=== PATIENT | female | born 1945 | race Caucasian/White ===

== ENCOUNTER 2016-10-11 01:47 | Inpatient (IN) | payer OTHER ==
[~2016-10-11] VITALS: Ht 154.9 cm; Wt 72.7 kg
[~2016-10-11 01:47] MED LIST: ACET650S14 PR; AMLO-511 PO; AMOX-429 PO; ASPI81TA42 PO; BRIM15OS OU; BRINOS OS; BUSP10TA23 PO; CLOP75 PO; FAMO-136 PO; FURO20 PO; INS7030 SQ; INSU100V SQ; IPRA6S NASAL; ISOS60TA4 PO; LOSA50TA37 PO; METO25 PO; MONT10TA21 PO; OXYC-38 PO; SLOWK8 PO; XALA2.5OS OU; [UNRECOGNIZED DRUG - CODE] OU
[2016-10-11] MEDS ORDERED: OMEP20 PO (02:10)
[2016-10-11] MEDS ORDERED: ROSU20 PO (02:10)
[2016-10-11] MEDS ORDERED: RANO500T3 PO (02:10)
[2016-10-11 02:11] LABS: GLUCOSE,POINT OF CARE 429 MG/DL (70-110)
[2016-10-11 02:53] LABS: HEMATOCRIT 31.7 % (36-46); HEMOGLOBIN 10.7 g/dL (12.0-16.0); MEAN CORPUSCULAR HEMOGLOBIN 30.1 pg (26.0-34.0); MEAN CORPUSCULAR HGB CONC 33.8 G/dL (31.0-37.0); MEAN CORPUSCULAR VOLUME 89 fL (80-100); PLATELET COUNT (AUTO) 213 K/uL (150-450); RED BLOOD CELL COUNT(AUTO) 3.57 MIL/uL (4.00-5.20); RED CELL DISTRIBUTION WIDTH 14.6 % (11.5-14.5); WHITE BLOOD COUNT (AUTO) 14.7 K/uL (4.5-11.0)
[2016-10-11 03:09] LABS: ALBUMIN 2.5 g/dL (3.4-5.0); BILIRUBIN,TOTAL 0.5 mg/dL (0.1-1.0); CALCIUM, TOTAL 8.5 mg/dL (8.8-10.5); CREATININE 1.89 mg/dL (0.60-1.30); POTASSIUM 3.7 mmol/L (3.5-5.1); TOTAL PROTEIN, SERUM 6.6 g/dL (6.4-8.2)
[2016-10-11] MEDS ORDERED: KETOROLAC TROMETHAMINE 30 MG/ML VIAL IVP ONE (03:15)
[2016-10-11] MEDS ORDERED: SODIUM CHLORIDE 0.9% 1,000 ML IV ONE ×3 (03:15→05:15)
[2016-10-11] MEDS ORDERED: LOPERAMIDE HCL 2 MG CAPSULE PO ONE (03:15)
[2016-10-11] MEDS ORDERED: INSULIN REGULAR, HUMAN 100 UNITS/ML IVP ONE (03:15)
[2016-10-11 03:21] LABS: BAND NEUTROPHILS % (MANUAL) 23 % (1-5); LYMPHOCYTES % (MANUAL) 9 % (22-44); TOTAL CELLS COUNTED 100
[2016-10-11 04:40] LABS: APPEARANCE,URINE CLOUDY (CLEAR); GLUCOSE, URINE (UA) 500 mg/dL (NEGATIVE); KETONES,URINE NEGATIVE (NEGATIVE); LEUKOCYTE ESTERASE ,URINE TRACE (NEGATIVE); OCCULT BLOOD,URINE SMALL (NEGATIVE); PH,URINE 5.5 (5.0-8.0); PROTEIN,URINE SEE CONFIRM (NEGATIVE)
[2016-10-11 04:41] LABS: GLUCOSE COMMENT 1 Doctor Notified; GLUCOSE,POINT OF CARE 325 MG/DL (70-110)
[2016-10-11] MEDS ORDERED: BARIUM SULFATE 0.1% SUSPENSION 450 ML BOTTLE PO ONE (04:45)
[2016-10-11 04:51] LABS: SQUAMOUS EPITHELIAL CELL,UR Few /LPF (None Seen); SULFOSALICYLIC ACID,URINE 1+ (Negative)
[2016-10-11 05:04] LABS: LACTIC ACID 2.4 mmol/L (0.4-2.0)
[2016-10-11] MEDS ORDERED: ACETAMINOPHEN 325 MG TABLET PO PRN (05:15)
[2016-10-11] MEDS ORDERED: ONDANSETRON HCL 4 MG/2 ML VIAL IVP PRN (05:15)
[2016-10-11] MEDS ORDERED: IODIXANOL 320 MG/ML 100 ML VIAL ONE (05:21)
[2016-10-11 06:23] LABS: REFLEX LACTIC ACID? YES YES
[2016-10-11] MEDS ORDERED: PANTOPRAZOLE SODIUM 40 MG/VIAL IVP ONE (06:45)
[2016-10-11 08:09] VITALS: BP 130/74
[2016-10-11] MEDS ORDERED: 0.9% SODIUM CHLORIDE 10 ML SYRINGE IVP PRN (09:45)
[2016-10-11] MEDS ORDERED: OMEPRAZOLE 20 MG CAPSULE PO SCH (09:45)
[2016-10-11 10:59] LABS: CALCIUM, TOTAL 7.5 mg/dL (8.8-10.5); CREATININE 1.36 mg/dL (0.60-1.30); POTASSIUM 3.5 mmol/L (3.5-5.1)
[2016-10-11] MEDS: FAMOTIDINE 20 MG TABLET PO SCH ×2 (11:43→20:24)
[2016-10-11] MEDS: ISOSORBIDE MONONITRATE 60 MG ER TABLET PO SCH (11:44)
[2016-10-11] MEDS: BusPIRone HCL 10 MG TABLET PO SCH ×2 (11:44→20:24)
[2016-10-11] MEDS: LOSARTAN POTASSIUM 50 MG TABLET PO SCH (11:44)
[2016-10-11] MEDS: AmLODIPine BESYLATE 5 MG TABLET PO SCH (11:44)
[2016-10-11] MEDS: CLOPIDOGREL BISULFATE 75 MG TABLET PO SCH (11:44)
[2016-10-11] MEDS: RANOLAZINE 500 MG SR TABLET PO SCH ×2 (11:45→20:24)
[2016-10-11] MEDS: IPRATROPIUM BROMIDE NASAL SCH ×2 (11:46→20:23)
[2016-10-11] MEDS: INSULIN HUMAN NPH-REGULAR 70/30 100 UNITS/ML SQ SCH ×2 (11:47→21:00)
[2016-10-11 11:54] VITALS: BP 134/56
[2016-10-11 11:56] LABS: GLUCOSE COMMENT 1 Received Meds; GLUCOSE,POINT OF CARE 295 MG/DL (70-110)
[2016-10-11] MEDS: METOPROLOL TARTRATE 25 MG TABLET PO SCH (11:59)
[2016-10-11] MEDS ORDERED: DEXTROSE 50%-WATER 25 GM/50 ML SYRINGE IVP PRN (12:00)
[2016-10-11] MEDS: GuaiFENesin/CODEINE [SUGAR FREE] 200-20MG/10 ML SYRUP UDCUP PO PRN (15:03)
[2016-10-11] MEDS: INSULIN ASPART 100 UNITS/ML SQ PRN ×2 (15:04→16:34)
[2016-10-11] MEDS: PILOCARPINE HCL 2% 15 ML OPHTHALMIC SOLUTION OU SCH ×3 (15:05→20:23)
[2016-10-11] MEDS: BRINZOLAMIDE 1% 10 ML OPHTHALMIC SUSPENSION OS SCH ×2 (15:05→20:23)
[2016-10-11 15:36] VITALS: BP 97/74
[2016-10-11] MEDS: BRIMONIDINE TARTRATE 0.1% 5 ML OPHTHALMIC SOLUTION OU SCH ×2 (15:52→21:00)
[2016-10-11] MEDS: MetroNIDAZOLE 500 MG TABLET PO SCH ×2 (16:30→20:25)
[2016-10-11 17:57] LABS: GLUCOSE,POINT OF CARE 99 MG/DL (70-110)
[2016-10-11 19:49] VITALS: BP 130/61
[2016-10-11] MEDS: ASPIRIN 81 MG EC TABLET PO SCH (20:24)
[2016-10-11] MEDS: MONTELUKAST SODIUM 10 MG TABLET PO SCH (20:24)
[2016-10-11] MEDS: LATANOPROST 0.005% 2.5 ML OPHTHALMIC SOLUTION OU SCH (20:24)
[2016-10-11] MEDS: ROSUVASTATIN CALCIUM 20 MG TABLET PO SCH (20:24)
[2016-10-11 21:56] LABS: GLUCOSE,POINT OF CARE 87 MG/DL (70-110)
[2016-10-12] VITALS (7 sets, daily range): BP systolic 106–140; BP diastolic 51–70
[2016-10-12 06:01] LABS: GLUCOSE,POINT OF CARE 111 MG/DL (70-110)
[2016-10-12 06:09] LABS: BASOPHILS % (AUTO) 0.2 % (0.0-2.0); EOSINOPHILS % (AUTO) 0.8 % (1.0-6.0); HEMATOCRIT 32.1 % (36-46); HEMOGLOBIN 10.6 g/dL (12.0-16.0); LYMPHOCYTES % (AUTO) 8.7 % (22.0-44.0); MEAN CORPUSCULAR HEMOGLOBIN 29.9 pg (26.0-34.0); MEAN CORPUSCULAR HGB CONC 33.1 G/dL (31.0-37.0); MEAN CORPUSCULAR VOLUME 90 fL (80-100); MONOCYTES # (AUTO) 0.6 K/uL (0.1-1.0); MONOCYTES % (AUTO) 4.8 % (2.0-9.0); NEUTROPHILS # (AUTO) 9.9 K/uL (1.8-7.7); PLATELET COUNT (AUTO) 193 K/uL (150-450); RED BLOOD CELL COUNT(AUTO) 3.55 MIL/uL (4.00-5.20); RED CELL DISTRIBUTION WIDTH 14.5 % (11.5-14.5); WHITE BLOOD COUNT (AUTO) 11.6 K/uL (4.5-11.0)
[2016-10-12 06:46] LABS: NEUTROPHILS % (AUTO) 85.5 % (40.0-70.0)
[2016-10-12] MEDS: MetroNIDAZOLE 500 MG TABLET PO SCH ×3 (08:26→20:48)
[2016-10-12] MEDS: METOPROLOL TARTRATE 25 MG TABLET PO SCH (08:26)
[2016-10-12] MEDS: ISOSORBIDE MONONITRATE 60 MG ER TABLET PO SCH (08:26)
[2016-10-12] MEDS: FAMOTIDINE 20 MG TABLET PO SCH ×2 (08:26→20:49)
[2016-10-12] MEDS: CLOPIDOGREL BISULFATE 75 MG TABLET PO SCH (08:27)
[2016-10-12] MEDS: LOSARTAN POTASSIUM 50 MG TABLET PO SCH (08:27)
[2016-10-12] MEDS: RANOLAZINE 500 MG SR TABLET PO SCH ×2 (08:29→20:48)
[2016-10-12] MEDS: BusPIRone HCL 10 MG TABLET PO SCH ×2 (08:29→20:49)
[2016-10-12] MEDS: AmLODIPine BESYLATE 5 MG TABLET PO SCH (08:29)
[2016-10-12] MEDS: BRINZOLAMIDE 1% 10 ML OPHTHALMIC SUSPENSION OS SCH ×3 (08:30→20:50)
[2016-10-12] MEDS: IPRATROPIUM BROMIDE NASAL SCH ×2 (08:30→21:00)
[2016-10-12] MEDS: PILOCARPINE HCL 2% 15 ML OPHTHALMIC SOLUTION OU SCH ×4 (08:31→20:50)
[2016-10-12] MEDS: GuaiFENesin/CODEINE [SUGAR FREE] 200-20MG/10 ML SYRUP UDCUP PO PRN (08:39)
[2016-10-12] MEDS: INSULIN HUMAN NPH-REGULAR 70/30 100 UNITS/ML SQ SCH ×2 (08:40→21:00)
[2016-10-12 08:56] LABS: GLUCOSE COMMENT 1 Received Meds; GLUCOSE,POINT OF CARE 156 MG/DL (70-110)
[2016-10-12] MEDS: BRIMONIDINE TARTRATE 0.1% 5 ML OPHTHALMIC SOLUTION OU SCH ×3 (09:00→20:50)
[2016-10-12 11:32] LABS: GLUCOSE,POINT OF CARE 175 MG/DL (70-110)
[2016-10-12] MEDS: INSULIN ASPART 100 UNITS/ML SQ PRN ×2 (12:04→20:48)
[2016-10-12 17:31] LABS: GLUCOSE COMMENT 1 Received Meds; GLUCOSE,POINT OF CARE 150 MG/DL (70-110)
[2016-10-12] MEDS: MONTELUKAST SODIUM 10 MG TABLET PO SCH (20:49)
[2016-10-12] MEDS: ROSUVASTATIN CALCIUM 20 MG TABLET PO SCH (20:50)
[2016-10-12] MEDS: ASPIRIN 81 MG EC TABLET PO SCH (20:50)
[2016-10-12] MEDS: LATANOPROST 0.005% 2.5 ML OPHTHALMIC SOLUTION OU SCH (20:51)
[2016-10-12 21:31] LABS: GLUCOSE COMMENT 1 Received Meds; GLUCOSE,POINT OF CARE 180 MG/DL (70-110)
[2016-10-13 03:45] VITALS: BP 114/53
[2016-10-13] MEDS: INSULIN ASPART 100 UNITS/ML SQ PRN ×3 (06:05→21:06)
[2016-10-13 06:21] LABS: GLUCOSE,POINT OF CARE 176 MG/DL (70-110)
[2016-10-13 07:59] VITALS: BP 137/64
[2016-10-13] MEDS: RANOLAZINE 500 MG SR TABLET PO SCH ×2 (09:02→21:05)
[2016-10-13] MEDS: AmLODIPine BESYLATE 5 MG TABLET PO SCH (09:03)
[2016-10-13] MEDS: FAMOTIDINE 20 MG TABLET PO SCH ×2 (09:04→21:05)
[2016-10-13] MEDS: ISOSORBIDE MONONITRATE 60 MG ER TABLET PO SCH (09:04)
[2016-10-13] MEDS: BusPIRone HCL 10 MG TABLET PO SCH ×2 (09:04→21:05)
[2016-10-13] MEDS: LOSARTAN POTASSIUM 50 MG TABLET PO SCH (09:05)
[2016-10-13] MEDS: CLOPIDOGREL BISULFATE 75 MG TABLET PO SCH (09:05)
[2016-10-13] MEDS: MetroNIDAZOLE 500 MG TABLET PO SCH ×3 (09:05→21:04)
[2016-10-13] MEDS: METOPROLOL TARTRATE 25 MG TABLET PO SCH (09:05)
[2016-10-13] MEDS: BRINZOLAMIDE 1% 10 ML OPHTHALMIC SUSPENSION OS SCH ×3 (09:06→21:05)
[2016-10-13] MEDS: PILOCARPINE HCL 2% 15 ML OPHTHALMIC SOLUTION OU SCH ×4 (09:07→21:06)
[2016-10-13] MEDS: IPRATROPIUM BROMIDE NASAL SCH ×2 (09:07→21:05)
[2016-10-13] MEDS: BRIMONIDINE TARTRATE 0.1% 5 ML OPHTHALMIC SOLUTION OU SCH ×3 (09:07→21:06)
[2016-10-13] MEDS: INSULIN HUMAN NPH-REGULAR 70/30 100 UNITS/ML SQ SCH ×2 (09:09→21:00)
[2016-10-13 12:24] VITALS: BP 118/60
[2016-10-13 12:31] LABS: GLUCOSE,POINT OF CARE 231 MG/DL (70-110)
[2016-10-13 15:51] VITALS: BP 120/66
[2016-10-13 19:36] VITALS: BP 128/51
[2016-10-13] MEDS: ASPIRIN 81 MG EC TABLET PO SCH (21:04)
[2016-10-13] MEDS: MONTELUKAST SODIUM 10 MG TABLET PO SCH (21:05)
[2016-10-13] MEDS: ROSUVASTATIN CALCIUM 20 MG TABLET PO SCH (21:05)
[2016-10-13] MEDS: LATANOPROST 0.005% 2.5 ML OPHTHALMIC SOLUTION OU SCH (21:05)
[2016-10-13] MEDS: GuaiFENesin/CODEINE [SUGAR FREE] 200-20MG/10 ML SYRUP UDCUP PO PRN (21:24)
[2016-10-13 22:26] LABS: GLUCOSE,POINT OF CARE 240 MG/DL (70-110)
[2016-10-13 22:26] LABS: GLUCOSE,POINT OF CARE 265 MG/DL (70-110)
[2016-10-13 23:02] VITALS: BP 120/56
[2016-10-14 04:23] VITALS: BP 137/58
[2016-10-14] MEDS: INSULIN ASPART 100 UNITS/ML SQ PRN ×2 (05:46→11:58)
[2016-10-14] MEDS: GuaiFENesin/CODEINE [SUGAR FREE] 200-20MG/10 ML SYRUP UDCUP PO PRN (05:50)
[2016-10-14 06:22] LABS: GLUCOSE,POINT OF CARE 189 MG/DL (70-110)
[2016-10-14 07:27] VITALS: BP 127/57
[2016-10-14 08:28] LABS: BASOPHILS % (AUTO) 0.1 % (0.0-2.0); HEMATOCRIT 31.1 % (36-46); HEMOGLOBIN 10.4 g/dL (12.0-16.0); LYMPHOCYTES # (AUTO) 1.1 K/uL (1.0-4.8); LYMPHOCYTES % (AUTO) 12.7 % (22.0-44.0); MEAN CORPUSCULAR HEMOGLOBIN 29.7 pg (26.0-34.0); MEAN CORPUSCULAR HGB CONC 33.4 G/dL (31.0-37.0); MEAN CORPUSCULAR VOLUME 89 fL (80-100); MONOCYTES # (AUTO) 0.7 K/uL (0.1-1.0); MONOCYTES % (AUTO) 8.4 % (2.0-9.0); NEUTROPHILS # (AUTO) 6.6 K/uL (1.8-7.7); NEUTROPHILS % (AUTO) 77.8 % (40.0-70.0); PLATELET COUNT (AUTO) 218 K/uL (150-450); RED CELL DISTRIBUTION WIDTH 15.3 % (11.5-14.5); WHITE BLOOD COUNT (AUTO) 8.4 K/uL (4.5-11.0)
[2016-10-14 08:36] LABS: CALCIUM, TOTAL 7.9 mg/dL (8.8-10.5); CREATININE 1.07 mg/dL (0.60-1.30); MAGNESIUM 1.9 mg/dL (1.80-2.40); POTASSIUM 3.2 mmol/L (3.5-5.1)
[2016-10-14] MEDS: INSULIN HUMAN NPH-REGULAR 70/30 100 UNITS/ML SQ SCH (09:00)
[2016-10-14] MEDS: BusPIRone HCL 10 MG TABLET PO SCH (09:10)
[2016-10-14] MEDS: MetroNIDAZOLE 500 MG TABLET PO SCH (09:10)
[2016-10-14] MEDS: LOSARTAN POTASSIUM 50 MG TABLET PO SCH (09:10)
[2016-10-14] MEDS: IPRATROPIUM BROMIDE NASAL SCH (09:10)
[2016-10-14] MEDS: RANOLAZINE 500 MG SR TABLET PO SCH (09:10)
[2016-10-14] MEDS: METOPROLOL TARTRATE 25 MG TABLET PO SCH (09:10)
[2016-10-14] MEDS: FAMOTIDINE 20 MG TABLET PO SCH (09:10)
[2016-10-14] MEDS: AmLODIPine BESYLATE 5 MG TABLET PO SCH (09:10)
[2016-10-14] MEDS: CLOPIDOGREL BISULFATE 75 MG TABLET PO SCH (09:10)
[2016-10-14] MEDS: ISOSORBIDE MONONITRATE 60 MG ER TABLET PO SCH (09:10)
[2016-10-14] MEDS: BRIMONIDINE TARTRATE 0.1% 5 ML OPHTHALMIC SOLUTION OU SCH (09:11)
[2016-10-14] MEDS: BRINZOLAMIDE 1% 10 ML OPHTHALMIC SUSPENSION OS SCH (09:11)
[2016-10-14] MEDS: PILOCARPINE HCL 2% 15 ML OPHTHALMIC SOLUTION OU SCH ×2 (09:11→13:34)
[2016-10-14 12:07] LABS: GLUCOSE COMMENT 1 Received Meds; GLUCOSE,POINT OF CARE 316 MG/DL (70-110)
[2016-10-14 12:23] VITALS: BP 134/56
[2016-10-14] MEDS ORDERED: POTASSIUM CHLORIDE 20 MEQ ER TABLET PO ONE (15:15)
[2016-10-14 15:22] VITALS: BP 135/64
== END 2016-10-14 16:10 | disposition home or self-care (01) | DRG 371 ==
LOC: EMS 01:50 → 6N 06:43
PROVIDERS: ADMIT Family Medicine; ATTEND Family Medicine
DX: A04.7 Enterocolitis due to Clostridium difficile (principal); N17.0 Acute kidney failure with tubular necrosis; E87.2 Acidosis; E44.0 Moderate protein-calorie malnutrition; K21.9 Gastro-esophageal reflux disease without esophagitis; M19.90 Unspecified osteoarthritis, unspecified site; D72.825 Bandemia; E11.65 Type 2 diabetes mellitus with hyperglycemia; E78.00 Pure hypercholesterolemia, unspecified; E78.5 Hyperlipidemia, unspecified; E86.0 Dehydration; I25.10 Atherosclerotic heart disease of native coronary artery without angina pectoris; J45.909 Unspecified asthma, uncomplicated; I51.7 Cardiomegaly; K80.20 Calculus of gallbladder without cholecystitis without obstruction; K76.0 Fatty (change of) liver, not elsewhere classified; N28.9 Disorder of kidney and ureter, unspecified; I10 Essential (primary) hypertension; Z90.49 Acquired absence of other specified parts of digestive tract; Z88.8 Allergy status to other drugs, medicaments and biological substances; Z79.4 Long term (current) use of insulin; Z87.891 Personal history of nicotine dependence; Z79.899 Other long term (current) drug therapy; Z79.82 Long term (current) use of aspirin; Z79.02 Long term (current) use of antithrombotics/antiplatelets; Z85.9 Personal history of malignant neoplasm, unspecified; Z98.61 Coronary angioplasty status; Z98.51 Tubal ligation status
CPT/HCPCS: 51701; 74177; 82962; 83605; 83735; 87086; 87324; 87449; 93005; 96361; 96374; 96375; 99285; C9113; J1815; J1885; J7030; Q9967

== ENCOUNTER 2018-01-08 20:07 | Emergency (ER) | payer OTHER ==
[~2018-01-08] VITALS: Ht 154.9 cm; Wt 75.0 kg
[~2018-01-08 20:07] MED LIST changes: -ACET650S14 PR; -AMOX-429 PO; -INSU100V SQ; +OMEP20 PO; -OXYC-38 PO; +RANO500T3 PO; +ROSU20 PO
[2018-01-08] MEDS ORDERED: AZIT250T9 PO (20:19)
[2018-01-08 20:23] LABS: GLUCOSE,POINT OF CARE 316 MG/DL (70-110)
[2018-01-08 21:07] LABS: BASOPHILS % (AUTO) 0.1 % (0.0-2.0); EOSINOPHILS % (AUTO) 0.1 % (1.0-6.0); HEMATOCRIT 38.8 % (36-46); HEMOGLOBIN 12.9 g/dL (12.0-16.0); LYMPHOCYTES # (AUTO) 0.4 K/uL (1.0-4.8); LYMPHOCYTES % (AUTO) 3.1 % (22.0-44.0); MEAN CORPUSCULAR HEMOGLOBIN 29.7 pg (26.0-34.0); MEAN CORPUSCULAR HGB CONC 33.2 G/dL (31.0-37.0); MEAN CORPUSCULAR VOLUME 89 fL (80-100); MONOCYTES # (AUTO) 0.1 K/uL (0.1-1.0); MONOCYTES % (AUTO) 1.2 % (2.0-9.0); NEUTROPHILS # (AUTO) 11.7 K/uL (1.8-7.7); PLATELET COUNT (AUTO) 171 K/uL (150-450); RED BLOOD CELL COUNT(AUTO) 4.34 MIL/uL (4.00-5.20); RED CELL DISTRIBUTION WIDTH 14.8 % (11.5-14.5)
[2018-01-08 21:09] LABS: NEUTROPHILS % (AUTO) 95.5 % (40.0-70.0)
[2018-01-08 21:17] LABS: CALCIUM, TOTAL 8.1 mg/dL (8.8-10.5); CREATININE 1.31 mg/dL (0.60-1.30); POTASSIUM 4.2 mmol/L (3.5-5.1)
[2018-01-08 21:23] LABS: ALBUMIN 2.3 g/dL (3.4-5.0); BILIRUBIN,TOTAL 0.6 mg/dL (0.1-1.0); TOTAL PROTEIN, SERUM 6.7 g/dL (6.4-8.2)
[2018-01-08] MEDS ORDERED: INSULIN REGULAR, HUMAN 100 UNITS/ML IVP ONE (23:45)
[2018-01-08] MEDS ORDERED: LEVOFLOXACIN 500 MG/D5% WATER 100 ML IV ONE (23:45)
[2018-01-08] MEDS ORDERED: ALBUTEROL SULFATE 2.5 MG/0.5 ML NEB SOLUTION NEB ONE (23:45)
[2018-01-08] MEDS ORDERED: SODIUM CHLORIDE 0.9% 1,000 ML IV ONE (23:45)
[2018-01-08] MEDS ORDERED: PredniSONE 20 MG TABLET PO ONE (23:45)
[2018-01-08] MEDS ORDERED: IPRATROPIUM BROMIDE 0.5 MG/2.5 ML NEB SOLUTION NEB ONE (23:45)
[2018-01-08] MEDS ORDERED: 0.9% SODIUM CHLORIDE 5 ML NEB SOLUTION NEB ONE (23:57)
[2018-01-09 02:04] VITALS: BP 149/60
[2018-01-09 03:43] LABS: GLUCOSE,POINT OF CARE 378 MG/DL (70-110)
== END 2018-01-09 02:29 | disposition home or self-care (01) ==
LOC: EMS 20:11
DX: J44.1 Chronic obstructive pulmonary disease with (acute) exacerbation (principal); J45.909 Unspecified asthma, uncomplicated; E11.9 Type 2 diabetes mellitus without complications; I10 Essential (primary) hypertension; E78.00 Pure hypercholesterolemia, unspecified; K21.9 Gastro-esophageal reflux disease without esophagitis; I25.10 Atherosclerotic heart disease of native coronary artery without angina pectoris; Z79.4 Long term (current) use of insulin; Z87.891 Personal history of nicotine dependence; Z88.8 Allergy status to other drugs, medicaments and biological substances
CPT/HCPCS: 36415; 71045; 80053; 82962; 83880; 84484; 85025; 93005; 94640; 96365; 96366; 96375; 99285; J1815; J1956

== ENCOUNTER → 2018-09-23 | Emergency (ER) | payer OTHER ==
[~2018-09-23] VITALS: Ht 154.9 cm; Wt 73.2 kg
[~2018-09-23] MED LIST changes: +ASPIRIN 325 MG TABLET PO ONE; +CEFU250T87 PO; +HydrALAZINE HCL 20 MG/ML VIAL IVP ONE; -ISOS60TA4 PO; -LOSA50TA37 PO; +LOSA50TA64 PO; +METOPROLOL TARTRATE 5 MG/5 ML VIAL IVP ONE; -MONT10TA21 PO; -OMEP20 PO; -RANO500T3 PO
[2018-09-23 15:19] LABS: PROTHROMBIN TIME 10.6 SEC (9.4-11.6)
[2018-09-23 15:21] LABS: CALCIUM, TOTAL 8.6 mg/dL (8.8-10.5); CREATININE 1.05 mg/dL (0.60-1.30); POTASSIUM 4.2 mmol/L (3.5-5.1)
[2018-09-23 15:47] LABS: ALBUMIN 2.3 g/dL (3.4-5.0); BILIRUBIN,TOTAL 0.6 mg/dL (0.1-1.0); TOTAL PROTEIN, SERUM 6.5 g/dL (6.4-8.2)
[2018-09-23 16:03] LABS: APPEARANCE,URINE CLEAR (CLEAR); BILIRUBIN,URINE NEGATIVE (NEGATIVE); GLUCOSE, URINE (UA) 500 mg/dL (NEGATIVE); KETONES,URINE NEGATIVE (NEGATIVE); LEUKOCYTE ESTERASE ,URINE NEGATIVE (NEGATIVE); NITRATE,URINE NEGATIVE (NEGATIVE); OCCULT BLOOD,URINE SMALL (NEGATIVE); PH,URINE 7.5 (5.0-8.0); PROTEIN,URINE SEE CONFIRM (NEGATIVE); UROBILINOGEN,URINE 0.2 mg/dL (<=1.0)
[2018-09-23 16:18] LABS: SULFOSALICYLIC ACID,URINE 4+ (Negative)
[2018-09-23 16:19] LABS: RBC,URINE 0-2 /HPF (0-2)
[2018-09-23 16:19] LABS: BASOPHILS % (AUTO) 0.3 % (0.0-2.0); EOSINOPHILS % (AUTO) 1.3 % (1.0-6.0); HEMATOCRIT 37.9 % (36-46); HEMOGLOBIN 12.6 g/dL (12.0-16.0); LYMPHOCYTES # (AUTO) 1.3 K/uL (1.0-4.8); MEAN CORPUSCULAR HEMOGLOBIN 30.3 pg (26.0-34.0); MEAN CORPUSCULAR HGB CONC 33.2 G/dL (31.0-37.0); MEAN CORPUSCULAR VOLUME 91 fL (80-100); MONOCYTES # (AUTO) 0.5 K/uL (0.1-1.0); NEUTROPHILS # (AUTO) 7.2 K/uL (1.8-7.7); NEUTROPHILS % (AUTO) 79.4 % (40.0-70.0); PLATELET COUNT (AUTO) 189 K/uL (150-450); RED BLOOD CELL COUNT(AUTO) 4.15 MIL/uL (4.00-5.20); RED CELL DISTRIBUTION WIDTH 14.2 % (11.5-14.5)
[2018-09-23 16:20] LABS: BACTERIA,URINE Rare /HPF (None Seen); SQUAMOUS EPITHELIAL CELL,UR Few /LPF (None Seen)
[2018-09-23 21:40] VITALS: BP 144/68
== END | disposition home or self-care (01) ==
LOC: EMS 14:22
DX: I10 Essential (primary) hypertension (principal); J45.909 Unspecified asthma, uncomplicated; I25.10 Atherosclerotic heart disease of native coronary artery without angina pectoris; E11.9 Type 2 diabetes mellitus without complications; K21.9 Gastro-esophageal reflux disease without esophagitis; E78.00 Pure hypercholesterolemia, unspecified; M19.90 Unspecified osteoarthritis, unspecified site; Z87.891 Personal history of nicotine dependence; Z88.8 Allergy status to other drugs, medicaments and biological substances; Z79.82 Long term (current) use of aspirin; Z79.899 Other long term (current) drug therapy; Z79.4 Long term (current) use of insulin; Z98.51 Tubal ligation status
CPT/HCPCS: 36415; 71045; 80053; 81001; 82550; 83690; 83880; 84484; 85025; 85610; 85730; 93005; 96374; 96375; 99291; J0360; J3490

== ENCOUNTER 2020-01-10 23:53 | Emergency (ER) | payer MEDICARE, OTHER ==
[~2020-01-10] VITALS: Ht 154.9 cm; Wt 72.7 kg
[~2020-01-10 23:53] MED LIST changes: -AMLO-511 PO; +AMLO5TAB9 PO; +ASPI81TA40 PO; -ASPI81TA42 PO; -ASPIRIN 325 MG TABLET PO ONE; -CLOP75 PO; +CLOP75TA3 PO; -HydrALAZINE HCL 20 MG/ML VIAL IVP ONE; +LOSA-88 PO; -LOSA50TA64 PO; -METOPROLOL TARTRATE 5 MG/5 ML VIAL IVP ONE; -ROSU20 PO; +ROSU20TA23 PO
[2020-01-11] MEDS ORDERED: PRAV20TA4 PO (00:37)
[2020-01-11] MEDS ORDERED: CHOL100018 PO (00:37)
[2020-01-11] MEDS ORDERED: LEVO2.5S4 PO (00:37)
[2020-01-11] MEDS ORDERED: ISOS60TA4 PO (00:37)
[2020-01-11] MEDS ORDERED: VALS160T2 PO (00:37)
[2020-01-11] MEDS ORDERED: MONT10TA21 PO (00:37)
[2020-01-11 01:15] LABS: BASOPHILS % (AUTO) 0.5 % (0.0-2.0); EOSINOPHILS % (AUTO) 0.3 % (1.0-6.0); HEMATOCRIT 36.2 % (36-46); HEMOGLOBIN 11.9 g/dL (12.0-16.0); LYMPHOCYTES # (AUTO) 0.8 K/uL (1.0-4.8); MEAN CORPUSCULAR HEMOGLOBIN 30.9 pg (26.0-34.0); MEAN CORPUSCULAR VOLUME 94 fL (80-100); MONOCYTES # (AUTO) 0.2 K/uL (0.1-1.0); MONOCYTES % (AUTO) 2.3 % (2.0-9.0); PLATELET COUNT (AUTO) 182 K/uL (150-450); RED BLOOD CELL COUNT(AUTO) 3.86 MIL/uL (4.00-5.20); RED CELL DISTRIBUTION WIDTH 14.4 % (11.5-14.5)
[2020-01-11] MEDS ORDERED: SODIUM CHLORIDE 0.9% 1,000 ML IV ONE ×2 (01:15→03:45)
[2020-01-11] MEDS ORDERED: CefTRIAXone 1 GM/DEXTROSE 50 ML IV ONE (01:15)
[2020-01-11 01:16] LABS: NEUTROPHILS % (AUTO) 88.9 % (40.0-70.0)
[2020-01-11 01:17] LABS: APPEARANCE,URINE CLEAR (CLEAR); BILIRUBIN,URINE NEGATIVE (NEGATIVE); GLUCOSE, URINE (UA) 500 mg/dL (NEGATIVE); KETONES,URINE TRACE mg/dL (NEGATIVE); LEUKOCYTE ESTERASE ,URINE TRACE (NEGATIVE); NITRATE,URINE POSITIVE (NEGATIVE); OCCULT BLOOD,URINE SMALL (NEGATIVE); PROTEIN,URINE SEE CONFIRM (NEGATIVE)
[2020-01-11] MEDS ORDERED: ACETAMINOPHEN 325 MG TABLET PO ONE (01:30)
[2020-01-11 01:45] LABS: BACTERIA,URINE Moderate /HPF (None Seen); SQUAMOUS EPITHELIAL CELL,UR Rare /LPF (None Seen); SULFOSALICYLIC ACID,URINE 4+ (Negative)
[2020-01-11 02:16] LABS: CALCIUM, TOTAL 8.2 mg/dL (8.8-10.5); CREATININE 1.34 mg/dL (0.60-1.30); POTASSIUM 3.7 mmol/L (3.5-5.1)
[2020-01-11 02:22] LABS: ALBUMIN 2.3 g/dL (3.4-5.0); BILIRUBIN,TOTAL 0.4 mg/dL (0.1-1.0); TOTAL PROTEIN, SERUM 6.6 g/dL (6.4-8.2)
[2020-01-11] MEDS ORDERED: VALSARTAN 80 MG TABLET PO ONE (02:45)
[2020-01-11] MEDS ORDERED: KETOROLAC TROMETHAMINE 30 MG/ML VIAL IVP ONE (03:30)
[2020-01-11 04:10] VITALS: BP 152/63
== END 2020-01-11 04:51 | disposition home or self-care (01) ==
LOC: EMS 23:56
DX: E86.0 Dehydration (principal); N39.0 Urinary tract infection, site not specified; J45.909 Unspecified asthma, uncomplicated; I25.10 Atherosclerotic heart disease of native coronary artery without angina pectoris; E11.9 Type 2 diabetes mellitus without complications; K21.9 Gastro-esophageal reflux disease without esophagitis; E78.00 Pure hypercholesterolemia, unspecified; I10 Essential (primary) hypertension; F17.210 Nicotine dependence, cigarettes, uncomplicated; Z88.8 Allergy status to other drugs, medicaments and biological substances; Z79.899 Other long term (current) drug therapy; Z79.82 Long term (current) use of aspirin
CPT/HCPCS: 36415; 71045; 80053; 81001; 83605; 83880; 85025; 85610; 85730; 87040; 87077; 87086; 87205; 96361; 96365; 96375; 99285; J0696; J1885; J7030